=== PATIENT | female | born 1975 | race Caucasian/White ===

== ENCOUNTER 2017-03-26 16:08 | Emergency (ER) | payer MEDICAID ==
[2017-03-26 16:47] VITALS: PULSE 66; RESP 18; O2SAT 97
--- NOTE | 2017-03-26 18:44 | C.PDOC ---
History Of Present Illness 42 year old patient presents to the ED complaining of right breast pain for the past 6+ months, worsening the last couple weeks. Patient had a mammogram done about 6 months ago and was instructed to get a repeat mammogram 6 months later. She notes her areola feels hard. Patient had breast augmentation about 9 years ago. She denies any nipple discharge, dimpling, nausea, vomiting or fever. (-) SOB (-) chest pain Time Seen by Provider: 03/26/17 16:52 Chief Complaint (Nursing): Breast Problem History Per: Patient History/Exam Limitations: no limitations Onset/Duration Of Symptoms: Other (2 months) Current Symptoms Are (Timing): Still Present Severity: Mild Pain Scale Rating Of: 3 Recent travel outside of the [place]: No Past Medical History Reviewed: Historical Data, Nursing Documentation, Vital Signs Vital Signs: Last Vital Signs Temp 97.9 F 03/26/17 19:13 Pulse 66 03/26/17 19:13 Resp 18 03/26/17 19:13 BP 109/77 03/26/17 19:13 Pulse Ox 97 03/26/17 19:33 - Medical History PMH: Kidney Stones Family History: States: Unknown Family Hx - Social History Hx Alcohol Use: No Hx Substance Use: No - Immunization History Hx Tetanus Toxoid Vaccination: Yes Hx Influenza Vaccination: Yes Hx Pneumococcal Vaccination: Yes Review Of Systems Except As Marked, All Systems Reviewed And Found Negative. Constitutional: Negative for: Fever Gastrointestinal: Negative for: Nausea, Vomiting Genitourinary: Positive for: Other (right breast pain) Skin: Negative for: Other (nipple discharge or dimpling) Physical Exam - Physical Exam Appears: Non-toxic, No Acute Distress Skin: Warm, Dry Head: Atraumatic, Normacephalic Eye(s): bilateral: Normal Inspection, EOMI Nose: Normal Oral Mucosa: Moist Neck: Normal ROM, Supple Lymphatic: Normal Exam, No Axilla Node Tenderness ((+) axillary tenderness, no lymphnodes appreciated) Chest: Symmetrical, Other (tenderness to the 8-10 o'clock area of right breast; no mass; no erythema; no dimpling; no nipple discharge) Cardiovascular: Rhythm Regular Respiratory: Normal Breath Sounds, No Accessory Muscle Use, No Rales, No Rhonchi , No Wheezing Back: Normal Inspection, No CVA Tenderness Extremity: Normal ROM Neurological/Psych: Oriented x3, Normal Speech, Normal Cognition Gait: Steady ED Course And Treatment O2 Sat by Pulse Oximetry: 97 (room air) Pulse Ox Interpretation: Normal - CT Scan/US Breast US Other Rad Studies (CT/US): Read By Radiologist (Anoop Shirley MD), Radiology Report Reviewed CT/US Interpretation: EXAM: US Right Breast Limited. CLINICAL HISTORY: 42 years old female; Pain; Breast pain; Right. TECHNIQUE: Real-time ultrasound of the right breast was performed in the area of interest from 9:00 to 12:00 as. well as in the subareolar region and right axilla. COMPARISON: None. FINDINGS: The imaged portion of the breast implant appears intact. No mass, cyst, or sonographic architectural distortion is identified from 9:00 to 12:00 and in the. subareolar region. There is a 1.6 x 0.7 cm benign appearing probably reactive lymph node with an echogenic fatty hilum. in the right axilla. IMPRESSION: No abnormality in the right breast between the 9:00 and 12 :00 positions in the area of interest and in. the subareolar region. 1.6 x 0.7 cm benign appearing probably reactive right axillary lymph node. BI-RADS 2 , Benign Progress Note: Plan: -Breast US. Patient was offered pain medications, but she refused them. Patient resting comfortably. She is given strict instruction to follow up with her GENERATION TECHNOLOGIST for mammogram. Discussed no signs of infection or abscess but can not r/o cancer. Return if symptoms worsen/persist. Disposition - Disposition [facility] Disposition: HOME/ ROUTINE Disposition Time: 18:42 Condition: STABLE Additional Instructions: Follow up with your GENERATION TECHNOLOGIST in 1-2 days for mammogram and further evaluation. Return to ER if symptoms persist or worsen. Prescriptions: Naproxen [Naprosyn] 1 tab PO BID PRN #20 tab PRN Reason: Pain Instructions: Breast Mass (ED) Print Language: PORTUGUESE - Clinical Impression Clinical Impression: Breast pain - PA / DENTAL EQUIPMENT MECHANIC / Resident Statement MD/DO has reviewed & agrees with the documentation as recorded. - Scribe Statement The provider has reviewed the documentation as recorded by the Scribe Suni Gonzales All medical record entries made by the Scribe were at my direction and personally dictated by me. I have reviewed the chart and agree that the record accurately reflects my personal performance of the history, physical exam, medical decision making, and the department course for this patient. I have also personally directed, reviewed, and agree with the discharge instructions and disposition.
[2017-03-26 19:15] VITALS: BP 109/77; TEMP 97.9
--- NOTE | 2017-03-27 09:40 | US ---
PROCEDURE: Ultrasound right breast HISTORY: Right breast pain. COMPARISON: None. TECHNIQUE: Standard protocol for this study/examination. FINDINGS: Cyst(s): None Breast mass: None Dilated ducts: None Parenchymal distortion: None Skin thickening or subcutaneous abnormalities: None Lymph node 7 x 16 mm right axilla " area pain." Incidental finding(s): Incompletely visualized right breast implant. IMPRESSION: BIRADS 2 Benign findings. Recommendation: Continue annual screening mammography, as per ACR guidelines. Concordant results (preliminary interpretation) provided by [facility]. Procedure Completed: 17:53. Preliminary ([facility]) Report: Dictated and Authenticated: 18:35. Final Interpretation: 09:39. March 27, 2017.
== END 2017-03-26 19:15 | disposition home or self-care (01) ==
LOC: C.ER 16:08
DX: N64.4 Mastodynia (principal)

== ENCOUNTER 2017-08-31 05:39 | Emergency (ER) | payer MEDICAID ==
[2017-08-31 05:59] VITALS: TEMP 97.8
[2017-08-31] MEDS ORDERED: Sodium Chloride 0.9% 1,000 ML IV ONE (06:31)
[2017-08-31] MEDS ORDERED: Iohexol 240 (50 ml) PO STA (06:31)
--- NOTE | 2017-08-31 06:45 | C.PDOC ---
History Of Present Illness 42 y/o female presents to ED with complaints of lower abdominal pain and diffuse itchiness through body 2 hours DISTRIBUTION SPEC. Patient reports mild nausea and dysuria but denies vomiting, vaginal bleeding, vaginal discharge or any other complaints at this time. Chief Complaint (Nursing): Allergic Reaction History Per: Patient History/Exam Limitations: no limitations Onset/Duration Of Symptoms: Days Current Symptoms Are (Timing): Still Present Past Medical History Reviewed: Historical Data, Nursing Documentation, Vital Signs Vital Signs: Last Vital Signs Temp 97.8 F 08/31/17 05:50 Pulse 85 08/31/17 05:50 Resp 16 08/31/17 05:50 BP 131/81 08/31/17 05:50 Pulse Ox 98 08/31/17 06:46 - Medical History PMH: Kidney Stones Surgical History: No Surg Hx Family History: States: No Known Family Hx - Social History Hx Alcohol Use: No Hx Substance Use: No - Immunization History Hx Tetanus Toxoid Vaccination: Yes Hx Influenza Vaccination: Yes Hx Pneumococcal Vaccination: Yes Review Of Systems Except As Marked, All Systems Reviewed And Found Negative. Constitutional: Negative for: Fever, Chills Gastrointestinal: Positive for: Nausea, Abdominal Pain. Negative for: Vomiting , Diarrhea Genitourinary: Positive for: Dysuria Musculoskeletal: Negative for: Back Pain Skin: Positive for: Rash Neurological: Negative for: Weakness, Numbness Physical Exam - Physical Exam Appears: Non-toxic, No Acute Distress Skin: Warm, Dry, Other (Erythematous skin) Head: Atraumatic, Normacephalic Oral Mucosa: Moist Neck: Normal ROM, Supple Chest: Symmetrical Cardiovascular: Rhythm Regular Respiratory: Normal Breath Sounds, No Rales, No Rhonchi, No Wheezing Gastrointestinal/Abdominal: Soft, Tenderness (lower abdominal), No Guarding, No Rebound Back: No CVA Tenderness Neurological/Psych: Oriented x3 ED Course And Treatment O2 Sat by Pulse Oximetry: 98 (RA) Pulse Ox Interpretation: Normal Disposition - Disposition Disposition Time: 07:00 Condition: UNKNOWN Forms: [facility] (Bermudian) - Clinical Impression Clinical Impression: Abdominal pain - Scribe Statement The provider has reviewed the documentation as recorded by the Alexusiblacy Katz All medical record entries made by the Alexusiblacy were at my direction and personally dictated by me. I have reviewed the chart and agree that the record accurately reflects my personal performance of the history, physical exam, medical decision making, and the department course for this patient. I have also personally directed, reviewed, and agree with the discharge instructions and disposition.
[2017-08-31] MEDS ORDERED: Sodium Chloride 0.9% 1,000 ML ONE (06:49)
[2017-08-31 06:52] LABS: BASO # 0.1 K/uL (0.0-0.2); BASO % 0.6 % (0.0-2.0); EOS # 0.1 K/uL (0.0-0.7); EOS % 0.6 % (0.0-4.0); HEMATOCRIT 43.3 % (34.0-47.0); LYMPH % 17.4 % (20.0-40.0); MEAN CELL VOLUME 94.5 fL (81.0-99.0); MEAN CORPUSCULAR HEMOGLOBIN 30.9 pg (27.0-31.0); MEAN CORPUSCULAR HGB CONC 32.7 g/dL (33.0-37.0); MEAN PLATELET VOLUME 8.8 fL (7.2-11.7); MONO # 0.8 K/uL (0.0-0.8); MONO % 7.2 % (0.0-10.0); RED CELL DISTRIBUTION WIDTH 13.2 % (11.5-14.5); WHITE BLOOD COUNT 11.3 K/uL (4.8-10.8)
[2017-08-31 07:05] LABS: CHLORIDE 101 mmol/L (98-107); POTASSIUM 3.9 mmol/L (3.6-5.2); SODIUM 134 mmol/L (132-148)
[2017-08-31 07:07] LABS: AST/SGOT 23 U/L (14-36); BILIRUBIN,TOTAL 0.5 mg/dL (0.2-1.3); CARBON DIOXIDE 22 mmol/L (22-30); GFR AFRICAN-AMERICAN > 60
[2017-08-31 07:08] LABS: ALB/GLOB RATIO 1.1 (1.0-2.1); ALKALINE PHOSPHATASE 52 U/L (38-126); ALT/SGPT 29 U/L (9-52); BLOOD UREA NITROGEN 15 mg/dL (7-17); CALCIUM 9.2 mg/dl (8.6-10.4); GLUCOSE,RANDOM 100 mg/dL (65-105); TOTAL PROTEIN 7.7 g/dL (6.3-8.3)
[2017-08-31] MEDS ORDERED: DiphenhydrAMINE 50 mg/ml Inj IVP STA (07:53)
[2017-08-31] MEDS ORDERED: Iohexol 240 (50 ml) ONE (08:00)
[2017-08-31] MEDS ORDERED: DiphenhydrAMINE 50 mg/ml Inj ONE (08:00)
[2017-08-31 08:28] LABS: RBC URINE < 1 /hpf (0-3); URINE BACTERIA RARE (<OCC); URINE BILIRUBIN NEGATIVE (NEGATIVE); URINE BLOOD NEGATIVE (NEGATIVE); URINE COLOR Straw (YELLOW); URINE GLUCOSE (UA) NORMAL (Normal); URINE KETONE NEGATIVE (NEGATIVE); URINE LEUKOCYTE ESTERASE NEG Leu/uL (Negative); URINE PROTEIN NEGATIVE (NEGATIVE); URINE UROBILINOGEN NORMAL mg/dL (0.2-1.0); WBC URINE < 1 /hpf (0-5)
[2017-08-31] MEDS ORDERED: Iodixanol 320 MG/ML 100 ML BOTTLE IV ONE ×2 (09:33→09:58)
--- NOTE | 2017-08-31 11:13 | CT ---
PROCEDURE: CT Abdomen and Pelvis with oral and IV contrast. HISTORY: lower abdominal pain COMPARISON: CT abdomen pelvis without contrast performed 10/21/15 TECHNIQUE: Contiguous axial images of the abdomen and pelvis. Oral and IV contrast was administered. Coronal and Sagittal reformats generated and reviewed. Contrast dose: 100 cc Visipaque 320 Radiation dose: Total exam DLP = 615.32 mGy-cm. This CT exam was performed using one or more of the following dose reduction techniques: Automated exposure control, adjustment of the mA and/or kV according to patient size, and/or use of iterative reconstruction technique. FINDINGS: LOWER THORAX: No visible consolidation, pleural effusion, or pneumothorax. LIVER: Unremarkable. GALLBLADDER AND BILE DUCTS: Unremarkable. PANCREAS: Unremarkable. SPLEEN: 10 mm probable splenule. Otherwise unremarkable. ADRENALS: Unremarkable. KIDNEYS AND URETERS: The kidneys enhance symmetrically. No hydronephrosis or obstructing renal calculus. BLADDER: The urinary bladder appears unremarkable. REPRODUCTIVE: Uterus is present. 9 mm probable left ovarian cyst. APPENDIX: Not visualized. No secondary signs of acute appendicitis. BOWEL: The stomach is nondistended. The bowel loops appear within normal limits of caliber without evidence of intestinal obstruction. PERITONEUM: No significant free fluid. No definite free air. LYMPH NODES: No bulky lymphadenopathy identified. VASCULATURE: No aortic aneurysm. BONES: No acute osseous abnormality is detected. OTHER FINDINGS: Bilateral breast prostheses. Pelvic calcifications, likely phleboliths. IMPRESSION: Probable 9 mm left ovarian cyst. Suggest pelvic ultrasound if indicated.
[2017-08-31 11:34] VITALS: BP 121/77; PULSE 97; RESP 18; O2SAT 97
== END 2017-08-31 12:39 | disposition home or self-care (01) ==
LOC: C.ER 05:39
DX: N83.209 Unspecified ovarian cyst, unspecified side (principal); R10.30 Lower abdominal pain, unspecified; F41.1 Generalized anxiety disorder
CPT/HCPCS: 74177; 80053; 80324; 80345; 80346; 80349; 80353; 80358; 80361; 81001; 83690; 83992; 85025; 87086; 96374; 96375; 99285; J1200; J2405; J2930; J7040; Q9966; Q9967